=== PATIENT | male | born 1995 | race Caucasian/White ===

== ENCOUNTER 2023-07-13 13:44 | Outpatient (CLI) | payer OTHER, SELFPAY | END 2023-07-13 13:45 | disposition home or self-care (01) | PROVIDERS: Visit Provider Nurse Practitioner Family | DX: R10.9 Unspecified abdominal pain (principal) | CPT/HCPCS: 80048; 85025 ==

== ENCOUNTER 2023-07-20 09:44 | Outpatient (CLI) | payer OTHER, SELFPAY ==
--- NOTE | 2023-07-20 10:00 | CRLHL7_ITS ---
For Patients: As a result of the Century Cures Act, medical imaging exams and procedure reports are released immediately into your electronic medical record. You may view this report before your referring provider. If you have questions, please contact your health care provider. INDICATION: Mid abdominal pain for 1 year TECHNIQUE: CT abdomen and pelvis acquired with IV contrast. COMPARISON: None FINDINGS: Lower chest: Unremarkable. Liver: Unremarkable. Spleen: Mild splenomegaly measuring 14.6 cm. Pancreas: Unremarkable. Gallbladder and bile ducts: Cholelithiasis. Kidneys: Unremarkable. Adrenal glands: Unremarkable. GI tract: Unremarkable. Appendix is normal. Vascular structures: Negative. No sign of aneurysm. Lymph nodes: Unremarkable. Miscellaneous: Unremarkable. No free air or significant free fluid. Pelvic Organs: Unremarkable. Bones: Unremarkable for age. IMPRESSION: 1. No acute findings in the abdomen or pelvis. Mild splenomegaly. Please note that all CT scans at this facility use dose modulation, iterative reconstruction, and/or weight-based dosing when appropriate to reduce radiation dose to as low as reasonably achievable. Dictated by Harriett Brizuela MD @ 07/26/2023 10:14:03 PM (Electronically Signed)
== END 2023-07-20 09:45 | disposition home or self-care (01) ==
LOC: CT 09:46
PROVIDERS: PCP Nurse Practitioner Family; Visit Provider Nurse Practitioner Family
DX: R10.9 Unspecified abdominal pain (principal)
CPT/HCPCS: 74176

== ENCOUNTER 2024-04-23 11:11 | Outpatient (CLI) | payer BC, SELFPAY | END 2024-04-23 11:12 | disposition home or self-care (01) | PROVIDERS: PCP Nurse Practitioner Family; Visit Provider Nurse Practitioner Family | DX: R10.33 Periumbilical pain (principal) | CPT/HCPCS: 80053; 85025; 86231; 86258; 86364 ==

== ENCOUNTER 2024-10-28 09:46 | Outpatient (CLI) | payer BC, SELFPAY ==
--- NOTE | 2024-10-28 10:00 | CRLHL7_ITS ---
For Patients: As a result of the Century Cures Act, medical imaging exams and procedure reports are released immediately into your electronic medical record. You may view this report before your referring provider. If you have questions, please contact your health care provider. INDICATION: ABDOMINAL PAIN TECHNIQUE: A CT volumetric acquisition was performed of the abdomen and pelvis without intravenous contrast. Please note that all CT scans at this facility use dose modulation, iterative reconstruction, and/or weight-based dosing when appropriate to reduce radiation dose to as low as reasonably achievable. COMPARISON: None. FINDINGS: The CT images demonstrate normal aeration of the lung bases. There is no evidence of pleural or pericardial fluid. Within the abdomen the liver appears normal in size and density. The spleen is of normal size. There is no evidence of mass effect or inflammation within the pancreas. Noncalcified gallstones are present within the gallbladder. No biliary obstruction. The adrenal glands have normal morphology. The kidneys are of normal size and there is no evidence of a calculus within either kidney or ureter and there is no evidence of hydronephrosis. The small and large bowel loops appear normal and there are no abnormalities noted within the small bowel mesentery or greater omentum. The aorta and IVC appear normal. There is no evidence of retroperitoneal lymphadenopathy. The prostate gland and urinary bladder appear normal. There is no evidence of a ventral abdominal wall hernia. Bilateral pars defects are present at L5 without spondylolisthesis. No vertebral body compression fracture. IMPRESSION: Cholelithiasis. No renal, ureteral or bladder stones. Bilateral L5 pars defects. Please note that all CT scans at this facility use dose modulation, iterative reconstruction, and/or weight-based dosing when appropriate to reduce radiation dose to as low as reasonably achievable. Dictated by Rudi Dodd MD @ 10/28/2024 11:40:05 AM (Electronically Signed)
== END 2024-10-28 09:47 | disposition home or self-care (01) ==
LOC: CT 09:46
PROVIDERS: PCP Nurse Practitioner Family; Visit Provider Nurse Practitioner Family
DX: R10.9 Unspecified abdominal pain (principal); K80.20 Calculus of gallbladder without cholecystitis without obstruction
CPT/HCPCS: 74176

== ENCOUNTER 2024-11-07 10:26 | Outpatient (CLI) | payer BC, SELFPAY ==
--- NOTE | 2024-11-07 10:45 | CRLHL7_ITS ---
For Patients: As a result of the Century Cures Act, medical imaging exams and procedure reports are released immediately into your electronic medical record. You may view this report before your referring provider. If you have questions, please contact your health care provider. INDICATION: Right upper quadrant pain TECHNIQUE: Conventional two-dimensional grayscale ultrasound of the right upper quadrant. COMPARISON: Abdomen/pelvis CT of 07/20/2023 FINDINGS: Stones and sludge are demonstrated in the gallbladder. The gallbladder wall is mildly thickened at 3 mm. No pericholecystic fluid is noted. The patient is reportedly not tender over the gallbladder. No biliary ductal dilation is evident. The common bile duct measures 4 mm. The liver is normal in size, shape and echogenicity. Pancreas is obscured by gas. The right kidney is unremarkable. The visualized portion of the abdominal aorta and inferior vena cava are negative. IMPRESSION: 1. Stones and sludge in the gallbladder and mild gallbladder wall thickening to 3 mm. Negative Carmona`s sign. 2. Normal bile ducts. Dictated by Mariano Rahman MD @ 11/07/2024 3:03:09 PM (Electronically Signed)
== END 2024-11-07 10:27 | disposition home or self-care (01) ==
LOC: US 10:28
PROVIDERS: PCP Nurse Practitioner Family; Visit Provider Nurse Practitioner Family
DX: R10.11 Right upper quadrant pain (principal); K80.20 Calculus of gallbladder without cholecystitis without obstruction
CPT/HCPCS: 76705

== ENCOUNTER 2024-11-15 08:44 | Outpatient (CLI) | payer BC, SELFPAY | END 2024-11-15 08:45 | disposition home or self-care (01) | PROVIDERS: PCP Nurse Practitioner Family; Visit Provider Nurse Practitioner Family | DX: Z01.818 Encounter for other preprocedural examination (principal) | CPT/HCPCS: 80053; 85025 ==

== ENCOUNTER 2024-11-21 06:46 | Day surgery (SDC) | payer BC, SELFPAY ==
[2024-11-21] VITALS (14 sets, daily range): BP systolic 120–159; BP diastolic 78–107; PULSE 56–74; RESP 16–22; TEMP 36.4–36.7; O2SAT 95–100; BMI 30.2
[2024-11-21] MEDS: LACTATED RINGERS 1000 ML 1,000 ML 100 ML IV (07:37)
[2024-11-21] MEDS: SODIUM CHLORIDE 0.9 % (FLUSH) 10 ML SYRINGE IVF (07:37)
--- NOTE | 2024-11-21 08:19 | W.PM.H&PU ---
History & Physical Update History & Physical Update H&P Reviewed and patient assessed: No changes noted H&P Updates: [patient had an episode of pain yesterday which resolved
--- NOTE | 2024-11-21 08:19 | PM.GSPRC ---
Operative Note Date of procedure: 11/21/24 Pre-op diagnosis: Recurrent biliary colic secondary to gallstones Post-op diagnosis: Same Type of Procedure: Laparoscopic cholecystectomy Indications: The patient is a 29-year-old male who presented to clinic with a several year history of right upper quadrant pain that woke him up at night. Workup eventually revealed cholelithiasis with some mild gallbladder wall thickening. After discussion of symptoms, his pain appeared to be consistent with biliary colic and we discussed management with cholecystectomy. He was agreeable to proceed. Procedure Description: After discussing the risks and benefits of the procedure, the patient signed informed consent.? The operative site was marked and the patient was brought to the operating room and placed on the operating table in supine position.? Care was taken to pad the patient's pressure points.?? The patient was then intubated by anesthesia.?? The operative site was then prepped and draped in the usual sterile fashion.? A time-out was then performed. Entrance to the abdomen was gained via a 5 mm Visiport in the left upper quadrant. The abdomen was insufflated and briefly surveyed for signs of injury. There was none. A 10 mm umbilical port was placed as well as 2 working ports along the right costal margin, all under direct vision. The patient was then placed in reverse Trendelenburg position with the right side up. The gallbladder fundus was grasped and retracted cephalad. The infundibulum was grasped. The gallbladder was noted to be very elongated. There was a stone stuck in the infundibulum/neck of the gallbladder. A combination of hook cautery and blunt dissection was used to carefully dissect out the cystic duct and artery until they could clearly be seen entering the gallbladder without any intervening structures. The gallbladder was dissected off the cystic plate to achieve the critical view. Of note, the artery initially appeared somewhat large and so, after dissecting this out circumferentially, the gallbladder was removed nearly entirely from the liver bed. Once it was clear that this structure was going into the gallbladder and not back into the liver, and there were no other intervening structures, the cystic duct and artery were each clipped with 2 clips proximally and 1 clip distally and transected with the scissors. The gallbladder was then taken off of the liver bed and removed from the abdomen using an Endo-Catch bag. The gallbladder bed was surveyed for hemostasis which appeared excellent. The ports were removed and the abdomen desufflated. The umbilical port fascia was closed with 0 Vicryl. Local anesthetic was injected around the incisions. The skin was closed with absorbable subcuticular suture. Instrument sponge and needle counts were correct at the end of the case. The patient was then woken and transferred to the PACU in stable condition. ? The patient tolerated the procedure well. Findings: Markedly elongated gallbladder with stone impacting the infundibulum/cystic neck Anesthesia: GETA Surgeon: Janet Wilburn MD Estimated blood loss (mL): 15 Specimen: Gallbladder Condition: stable Disposition: PACU
[2024-11-21] MEDS: CLINDAMYCIN 900 MG/50 ML-D5W IVPB (08:24)
[2024-11-21] MEDS: BUPIVACAINE 0.25% 30 ML INJECTION (08:40)
--- NOTE | 2024-11-21 10:24 | P.ANES_ITS ---
Anesthesia Charges Start Date/Time Anesthesia Start Date: 11/21/24 Anesthesia Start Time: 08:14 Stop Date/Time Anesthesia Stop Date: 11/21/24 Anesthesia Stop Time: 10:23 Coding CPT Codes CPT Codes: ANESTH SURG UPPER ABDOMEN - 00847 ([id number]) P2 - PATIENT W/MILD SYST DISEASE, QK - AUTOMATED CUTTING MACHINE OPERATOR 2-4 CNCRNT ANES PROC, QX - SERGEANT MISSILE CREWMAN SVC W/ MD MED DIRECTION
--- NOTE | 2024-11-21 10:24 | W.ANESCHARGE ---
Anesthesia Charges Start Date/Time Anesthesia Start Date: 11/21/24 Anesthesia Start Time: 08:14 Stop Date/Time Anesthesia Stop Date: 11/21/24 Anesthesia Stop Time: 10:23 Coding CPT Codes CPT Codes: ANESTH SURG UPPER ABDOMEN - 37547 ([id number]) P2 - PATIENT W/MILD SYST DISEASE, QK - CONTROL ROOM AGENT 2-4 CNCRNT ANES PROC, QX - TECHNOLOGY SALES SPECIALIST SVC W/ MD MED DIRECTION
--- NOTE | 2024-11-21 10:33 | SUR.PHASEI ---
Patient arrived to PACU no complaints of pain or nausea, wants to be on his side. Oxygen saturation 95-98%.
[2024-11-21] MEDS: HYDROmorphone 0.5 mg/0.5 ml inj IVP (10:48)
--- NOTE | 2024-11-21 10:52 | SUR.PHASEI ---
Patient complaining of pain like a gallbladder attack. Dilaudid given. Patient had concerns about the medication Fentanyl when I mentioned the medication.
--- NOTE | 2024-11-21 10:57 | SUR.PHASEI ---
Patient meets discharge criteria from PACU
--- NOTE | 2024-11-21 12:05 | P.ANES_ITS ---
Anesthesia Charges Start Date/Time Anesthesia Start Date: 11/21/24 Anesthesia Start Time: 08:14 Stop Date/Time Anesthesia Stop Date: 11/21/24 Anesthesia Stop Time: 10:23 Coding CPT Codes CPT Codes: ANESTH SURG UPPER ABDOMEN - 94853 ([id number]) QK - MUSIC GRAPHER 2-4 CNCRNT ANES PROC, QX - FIRE PREVENTION CHIEF SVC W/ MD MED DIRECTION, P2 - PATIENT W/MILD SYST DISEASE
--- NOTE | 2024-11-21 12:05 | W.ANESCHARGE ---
Anesthesia Charges Start Date/Time Anesthesia Start Date: 11/21/24 Anesthesia Start Time: 08:14 Stop Date/Time Anesthesia Stop Date: 11/21/24 Anesthesia Stop Time: 10:23 Coding CPT Codes CPT Codes: ANESTH SURG UPPER ABDOMEN - 22596 ([id number]) QK - GROUP EXERCISE CLASS INSTRUCTOR 2-4 CNCRNT ANES PROC, QX - AIR BRUSH ARTIST SVC W/ MD MED DIRECTION, P2 - PATIENT W/MILD SYST DISEASE
== END 2024-11-21 12:20 | disposition home or self-care (01) ==
LOC: OR 06:47
PROVIDERS: PCP Nurse Practitioner Family; Visit Provider Surgery
PROC: 0FT44ZZ Resection of Gallbladder, Percutaneous Endoscopic Approach (ICD-10-PCS; CPT 47562; principal; 2024-11-21 08:00)
DX: K80.11 Calculus of gallbladder with chronic cholecystitis with obstruction (principal)
CPT/HCPCS: 47562; 00790; 88304; J0665; J0736; J1100; J1171; J1885; J2250; J2405; J2704; J2710; J3010; J3490; J7120

== ENCOUNTER 2025-01-24 10:32 | Outpatient (CLI) | payer BC, SELFPAY ==
--- NOTE | 2025-01-24 10:15 | MR_ITS ---
[facility] [address] [address] Phone:?[phone] Fax:?[phone] Referring Physician Information: Edmund Rai M.D. [id number] [address] Phone:?[phone] Fax:?[phone] Patient:Sylwia Lopez D.O.B:?1995 Sex:?Male Phone:?[phone] [facility] MRN:?[id number] Exam Date:?01/24/2025 EXAM: MRI of the RIGHT WRIST, without contrast CLINICAL HISTORY: Ongoing right wrist swelling/lump. Evaluate for aneurysm and cyst. COMPARISONS: None available. TECHNICAL: MR sequences of the right wrist were obtained: coronals: PD, PD FS, T2 3-D FS sagittals: PD FS axials: PD, PD FS Sedation: None Contrast: None FINDINGS: Joints and osseous structures: No fracture, suspicious bone marrow signal abnormality, subluxation, dislocation, or erosive change. TFCC: The triangular fibrocartilage disc is intact. The proximal and distal laminae of the ulnar attachment are intact. The volar and dorsal radioulnar ligaments are intact. Ligaments: Scapholunate: Intact. The scapholunate interval and angle are normal. The capitolunate angle is normal. Lunotriquetral: No evidence of tear on this nonarthrogram study. No offset of the lunotriquetral interval. Tendons: Flexors: Intact without tendinopathy or tenosynovitis. Extensors: ECU & 6th extensor compartment: Intact without coy tendinopathy tear or longitudinal splitting. Extensor retinaculum and fibrous subsheath appear intact without demonstrable subsheath injury or nonphysiologic ECU displacement. 1st - 5th extensor compartments: Intact and unremarkable. Neurovascular: Median: Unremarkable carpal tunnel without convincing neuritis or intrinsic/extrinsic masses. Ulnar: Unremarkable Guyon's canal without intrinsic/extrinsic masses. Ganglia: 3.4 cm in craniocaudad dimension by 1.3 cm in AP dimension by 1.5 cm in transverse dimension ganglion at the volar aspect of the radial styloid extending between the flexor carpi radialis tendon and radial artery/vein. IMPRESSION: 1. 3.4 x 1.3 x 1.5 cm ganglion at the volar aspect of the radial styloid extending between the flexor carpi radialis tendon and radial artery/vein. 2. No osseous, ligamentous, tendinous, or triangular fibrocartilage injury of the right wrist. RCB Electronically signed on 01/24/2025 1:22:00 PM by Roderick Fernandez M.D.
--- OUTSIDE RECORDS SUMMARY | 2025-01-25 00:13 | XMS_ITS | Clinical Summary ---
Author Organization [facility] Address [address] [place] [address] Care Team Providers Care Mine Production Engineer Name Role Phone Radha De La Cruz MD Primary Care Prov ider Allergies Active Allergy Reactions Criticality Noted Date Comments Amoxicillin Edema 02/16/2021 Penicillins *Unknown 03/01/2013 Medications No known medications Encounters Date Type Department Care Team Description 11/21/2024 Lab Requisition [facility] [phone] Janet Wilburn MD from Last 3 Months Social History Tobacco Use Types Packs/Day Years Used Date Smoking Tobacco: Never Smokeless Tobacco: Never Alcohol Use Standard Drinks/Week Comments Never 0 (1 standard drink = 0.6 oz pur e alcohol) Sex and Gender Information Value Date Recorded Sex Assigned at Not on file 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 Gender Identity Not on file Sexual Orientation Not on file Obstetrics History Last Filed Vital Signs Vital Sign Reading Time Taken Comments Blood Pressure 125/82 04/03/2023 9:13 AM CDT Pulse 80 04/03/2023 9:13 AM CDT Temperature 36.2 C (97.2 F) 04/03/2023 9:13 AM CDT Respiratory Rate 16 04/03/2023 9:13 AM CDT Oxygen Saturation 96% 04/03/2023 9:13 AM CDT Inhaled Oxygen Concentration - - Weight 95.9 kg (211 lb 6.4 oz) 04/03/2023 9:13 A M CDT Height 180.3 cm (5' 11) 02/16/2021 3:52 PM CDT Body Mass Index 29.48 02/16/2021 3:52 PM CDT Plan of Treatment Health Maintenance Due Date Last Done Comments Tdap 2004 Depression screening for age 12+ 2005 HIV for age 15-65 2008 BMI (ht and wt on same day) for age 18+ 2011 Hepatitis C screening for ag e 18-79 2011 Hepatitis B series for 19+ ( 1 of 3 - 19+ 3-dose series) 2012 Tetanus booster 2013 COVID-19 vaccine series ( season) 2024 03/17/2021 Influenza Vaccine (Season Ended) 2025 Pneumococcal series for age 6-49 Aged Out No longer eligible based on patient's age to complete this topic Procedures Procedure Name Priority Date/Time Associated Diagnosis Comments PATH TISSUE EXAM Routine 11/21/2024 9:54 AM CDT LAB TRACKING EVENT Routine 11/21/2024 6: 46 AM CDT from Last 3 Months Results * PATH TISSUE EXAM (11/21/2024 9:54 AM CDT) Case Report Pathology Report Case: [id number] Authorizing Provider: Janet Wilburn MD Collected: 11/21/2024 0954 Ordering Location: [facility] Received: 11/22/2024 0622 Pathologist: Mehul Wiseman MD Specimen: Gallbladder 11/26/2024 1:06 PM CDT [facility] Final Diagnosis A) GALLBLADDER, CHOLECYSTECTOMY: 1. Chronic cholecystitis 2. Cholelithiasis 3. Negative for dysplasia and malignancy 11/26/2024 1:06 PM CDT [facility] at 1306 CDT Clinical Information Mr. Garza is a 29 y.o. who undergoes cholecystectomy. 11/26/2024 1:06 PM CDT [facility] Gross Description A) Received in formalin, labeled with the patient's name and gallbladder, is a 14.5 x 3 x 2.9 cm intact gallbladder. The lumen contains thick green-black mucoid bile and 4 black-brown finely granular choleliths ranging 1.2-2.2 cm. Serosa is purple, lundy-nguyen focal ragged fatty adhesions. The wall averages 0.2 cm thick and soft. The mucosa is green-nguyen variably eroded and without discrete lesions. No enlarged lymph nodes are identified. Induction Furnace Operator sections, including cystic duct en face margin, are submitted in 1 cassette. Time and date in formalin: 0954 on 11/21/2024 LDW 11/22/2024 11/26/2024 1:06 PM CDT [facility] Microscopic Description The final diagnosis is based on microscopic examination of appropriate sections of all specimens. 11/26/2024 1:06 PM CDT [facility] Additional Information Interpreted at [facility], Central Laboratory - [address] [place] [address] 11/26/2024 1:06 PM CDT [facility] Other SPECIMEN FROM GALLBLADDER / Unknown 11/21/2024 9:54 AM CDT 11/22/2024 6:22 AM CDT Janet Wilburn MD PATHOLOGY/CYTOLOGY Final Result Performing Organization Address [facility] de Phone Number [facility] [address] [place] [address], * LAB TRACKING EVENT (11/21/2024 6:46 AM CDT) Other (Other) Client Collect / Unknown 11/21/2024 6:46 AM CDT 11/21/2024 9:13 PM CDT Janet Wilburn MD LAB BILL ONLY Final Re sult Performing Organization Address [facility] Co de Phone Number [facility] [address] [place] [address], from Last 3 Months Insurance [employer] [id number] [id number] Care Teams Mine Production Engineer Relationship Specialty Start Date End Date Radha De La Cruz MD PCP - General Family Practice 02/28/16
== END 2025-01-24 10:33 | disposition home or self-care (01) ==
LOC: MRI 10:33
PROVIDERS: PCP Nurse Practitioner Family; Visit Provider Orthopaedic Surgery
DX: R22.31 Localized swelling, mass and lump, right upper limb (principal); M67.431 Ganglion, right wrist
CPT/HCPCS: 73221